=== PATIENT | male | born 1935 | race Caucasian/White ===

== ENCOUNTER 2019-11-08 12:06 | Emergency (ER) | payer MEDICARE, OTHER ==
[2019-11-08] MEDS ORDERED: Bacitracin Oint 1 GM U/D Packet TOP ONE (12:54)
--- NOTE | 2019-11-08 12:58 | EDM.PDOC ---
ED HPI GENERAL MEDICAL PROBLEM - General Chief Complaint: Upper Extremity Injury/Pain Stated Complaint: LEFT HAND INJURY Time Seen by Provider: 11/08/19 12:47 Source of Information: Reports: Patient, RN Notes Reviewed History Limitations: Reports: No Limitations - History of Present Illness INITIAL COMMENTS - FREE TEXT/NARRATIVE: 83-year-old gentleman presents emergency department today following trauma to his left hand he was out cutting wood a tree branch came down and hit the dorsal surface of his left hand unfortunately he had an avulsion of the skin between digits #1 1 and 2, he does not have the avulsed piece of skin with him - Related Data Allergies Allergy/AdvReac Type Severity Reaction Status Date / Time No Known Allergies Allergy Verified 11/08/19 12:30 Home Meds: Home Meds Albuterol Sulfate [Albuterol Sulfate Hfa] 2 puff IH ASDIRECTED 11/08/19 [History ] Aspirin [Halfprin] 81 mg PO DAILY 11/08/19 [History] Past Medical History HEENT History: Reports: Cataract, Impaired Vision Cardiovascular History: Reports: CAD, Prior Cardiac Arrest, Stents Respiratory History: Reports: COPD, Sleep Apnea Other Respiratory History: cpap Endocrine/Metabolic History: Reports: Diabetes, Type II, Obesity/BMI 30+ - Past Surgical History Head Surgeries/Procedures: Reports: None HEENT Surgical History: Reports: None Cardiovascular Surgical History: Reports: Coronary Artery Stent Respiratory Surgical History: Reports: None GI Surgical History: Reports: Appendectomy Endocrine Surgical History: Reports: None Musculoskeletal Surgical History: Reports: Knee Replacement Dermatological Surgical History: Reports: None Social & Family History - Tobacco Use Smoking Status *Q: Former Smoker Used Tobacco, but Quit: Yes Month/Year Tobacco Last Used: 1999 Second Hand Smoke Exposure: No - Caffeine Use Caffeine Use: Reports: Coffee - Recreational Drug Use Recreational Drug Use: No Review of Systems - Review of Systems Review Of Systems: See Below Skin: Reports: Wound Neurological: Reports: No Symptoms ED EXAM, GENERAL - Physical Exam Exam: See Below Free Text/Narrative:: Examination of the left hand he has full range of motion of all digits radial pulses +2 sensation is intact he does have bruising and ecchymosis over the dorsal surface he is tender to the touch over the second metacarpal he has avulsed the skin between digits 1 and 2 it is a superficial avulsion of the thin skin. Bleeding is controlled Course - Vital Signs Last Recorded V/S: Last Vital Signs Temp 97.7 F 11/08/19 12:39 Pulse 79 11/08/19 12:39 Resp 16 11/08/19 12:39 BP 158/92 H 11/08/19 12:39 Pulse Ox 94 L 11/08/19 12:39 - Orders/Labs/Meds Orders: Active Orders 24 hr Category Date Time Status Hand 2V Lt [CR] Stat Exams 11/08/19 12:53 Taken Meds: Medications Discontinued Medications Generic Name Dose Route Start Last Admin Trade Name Reji PRN Reason Stop Dose Admin Bacitracin 1 dose 11/08/19 12:54 11/08/19 13:30 Bacitracin Oint 1 Gm TOP 11/08/19 12:55 1 dose ONETIME ONE Administration Departure - Departure Time of Disposition: 13:46 Disposition: Home, Self-Care 01 Condition: Fair Clinical Impression: Avulsion of skin of left hand Qualifiers: Encounter type: initial encounter Qualified Code(s): S61.402A - Unspecified open wound of left hand, initial encounter - Discharge Information Instructions: Skin Tear, [id number] Referrals: PCP,None [Primary Care Provider] - Forms: ED Department Discharge Additional Instructions: Recommend changing your dressing every 3 to 5 days with bacitracin and clean with soap and water apply clean dressing follow-up primary care 3 to 5 days if not better call return to the emergency department worsening of symptoms Sepsis Event Note - Evaluation Sepsis Screening Result: No Definite Risk - Focused Exam Vital Signs: Vital Signs Temp Pulse Resp BP Pulse Ox 11/08/19 12:39 97.7 F 79 16 158/92 H 94 L 11/08/19 12:27 97.7 F 79 16 158/92 H 94 L Date Exam was Performed: 11/08/19 Time Exam was Performed: 13:45 - My Orders Last 24 Hours: My Active Orders 11/08/19 12:53 Hand 2V Lt [CR] Stat - Assessment/Plan Last 24 Hours: My Active Orders 11/08/19 12:53 Hand 2V Lt [CR] Stat Plan: Assessment Acuity = acute Site and laterality = avulsion of skin on left hand with contusion Etiology = secondary to trauma Manifestations = none Location of injury = Home Lab values = x-ray hand I did review films myself I cannot appreciate any acute process, the official read from radiology is pending Plan Did discuss wound care with him he will do this at home follow-up with his primary care 3 to 5 days if not better This note was dictated using [employer] voice recognition software please call with any questions on syntax or grammar.
--- NOTE | 2019-11-08 13:46 | CR ---
Hand 2V Lt CLINICAL HISTORY: Trauma FINDINGS: There is deformity of the scaphoid likely related to fracture. There is significant the degenerative change in the radiocarpal joint with loss of the joint space is also deformity of the lunate Bones appear osteopenic. 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 Deformity of the scaphoid may be from old injury or degenerative change and some rotation.
== END 2019-11-08 13:52 | disposition home or self-care (01) ==
LOC: JP.ED 12:06
DX: S61.402A Unspecified open wound of left hand, initial encounter (principal); I25.10 Atherosclerotic heart disease of native coronary artery without angina pectoris; J44.9 Chronic obstructive pulmonary disease, unspecified; E11.9 Type 2 diabetes mellitus without complications; E66.9 Obesity, unspecified; Z87.891 Personal history of nicotine dependence; Z79.82 Long term (current) use of aspirin; Z68.32 Body mass index [BMI] 32.0-32.9, adult; W22.8XXA Striking against or struck by other objects, initial encounter
CPT/HCPCS: 73120-26-LT; 73120-LT; 99283; 99283-25

== ENCOUNTER 2020-11-11 16:44 | Emergency (ER) | payer MEDICARE, OTHER ==
--- NOTE | 2020-11-11 18:08 | EDM.PDOC ---
ED HPI GENERAL MEDICAL PROBLEM - General Chief Complaint: General Stated Complaint: ABD PAIN Time Seen by Provider: 11/11/20 17:10 Source of Information: Reports: Patient, Family, Provider History Limitations: Reports: No Limitations - History of Present Illness INITIAL COMMENTS - FREE TEXT/NARRATIVE: 84-year-old male has had anterior chest and left anterior chest pain after a procedure with a chiropractor 1 week ago. The pain was fairly localized to the left of the sternum, but after working with his skid steer and pulling on a cable the pain is now radiating further to the left to the anterior chest wall. There is no bruising, deformity but it is very painful to breathe or lie down. He does not complain of shortness of breath. He has not taken anything for pain. Onset: Sudden (Pain started fairly suddenly 1 week ago during a chiropractic procedure on a table) Location: Reports: Chest (Anterior and left chest) Quality: Reports: Sharp Improves with: Reports: Rest Worsens with: Reports: Breathing, Other (Coughing is very painful), Movement Left Lower Chest Pain Score (Numeric/FACES): 5 - Related Data Allergies Allergy/AdvReac Type Severity Reaction Status Date / Time No Known Allergies Allergy Verified 11/08/19 12:30 Home Meds: Home Meds Albuterol Sulfate [Albuterol Sulfate Hfa] 2 puff IH ASDIRECTED 11/08/19 [History] Aspirin [Halfprin] 81 mg PO DAILY 11/08/19 [History] Past Medical History HEENT History: Reports: Cataract, Impaired Vision Cardiovascular History: Reports: CAD, Prior Cardiac Arrest, Stents Respiratory History: Reports: COPD, Sleep Apnea Other Respiratory History: cpap Gastrointestinal History: Reports: None Musculoskeletal History: Reports: None Endocrine/Metabolic History: Reports: Diabetes, Type II, Obesity/BMI 30+ - Infectious Disease History Infectious Disease History: Reports: Chicken Pox, Measles, Mumps - Past Surgical History Head Surgeries/Procedures: Reports: None HEENT Surgical History: Reports: None Cardiovascular Surgical History: Reports: Coronary Artery Stent Respiratory Surgical History: Reports: None GI Surgical History: Reports: Appendectomy Endocrine Surgical History: Reports: None Musculoskeletal Surgical History: Reports: Knee Replacement Dermatological Surgical History: Reports: None Social & Family History - Tobacco Use Years of Tobacco use: 70 Packs/Tins Daily: 0.5 - Caffeine Use Caffeine Use: Reports: Coffee - Recreational Drug Use Recreational Drug Use: No ED ROS GENERAL - Review of Systems Review Of Systems: See Below Constitutional: Denies: Fever, Chills Respiratory: Reports: Pleuritic Chest Pain. Denies: Shortness of Breath Cardiovascular: Reports: Chest Pain. Denies: Palpitations GI/Abdominal: Denies: Abdominal Pain, Nausea, Vomiting Musculoskeletal: Denies: Neck Pain Skin: Denies: Bruising, Rash (No rash over painful area) Neurological: Denies: Paresthesia Psychiatric: Reports: No Symptoms ED EXAM, GENERAL - Physical Exam Exam: See Below Exam Limited By: No Limitations General Appearance: Alert, No Apparent Distress Head: Atraumatic Neck: Supple, Non-Tender Respiratory/Chest: Lungs Clear, Other (Chest is very tender to palpation just to the left of the sternum radiating along the left 10th or 11th ribs, no crepitus or deformities felt) Cardiovascular: Regular Rate, Rhythm Extremities: Normal Inspection, No Pedal Edema Neurological: Alert, Oriented Skin Exam: Other (Some superficial abrasions on his right forearm from scratching) Course - Vital Signs Last Recorded V/S: Last Vital Signs Temp 97.5 F 11/11/20 16:57 Pulse 71 11/11/20 16:57 Resp 18 11/11/20 16:57 BP 185/83 H 11/11/20 16:57 Pulse Ox 99 11/11/20 16:57 - Orders/Labs/Meds Meds: Medications Discontinued Medications Generic Name Dose Route Start Last Admin Trade Name Weroq PRN Reason Stop Dose Admin Naproxen 500 mg 11/11/20 18:09 11/11/20 18:21 Naproxen 250 Mg Tab PO 11/11/20 18:10 500 mg ONETIME ONE Administration - Re-Assessments/Exams Free Text/Narrative Re-Assessment/Exam: 11/11/20 18:14 CT of the chest without contrast was ordered and the patient was given 500 mg of oral naproxen. 11/11/20 18:26 Impression: COPD/emphysema. Bilateral lower lobe scarring. No sternal fracture. No retrosternal hematoma. Above findings were discussed with the patient, he was encouraged to continue with anti-inflammatories and increase activity as tolerated. Recheck in 4 to 5 days if not improving satisfactorily. Departure - Departure Time of Disposition: 18:47 Disposition: Home, Self-Care 01 Clinical Impression: Chest wall pain, Acute costochondritis - Discharge Information Instructions: Costochondritis, [id number] Referrals: PCP,None [Primary Care Provider] - Forms: ED Department Discharge Care Plan Goals: Take a regular dose of ibuprofen or naproxen over the next 5 days, increase activity as tolerated and recheck if not improving satisfactorily. Return sooner if worsening despite treatment such as difficulty breathing. Sepsis Event Note (ED) - Evaluation Sepsis Screening Result: No Definite Risk
[2020-11-11] MEDS ORDERED: Naproxen 250 MG Tab PO ONE (18:09)
--- NOTE | 2020-11-11 18:25 | CRLCT ---
Indication: INJURY TO LEFT ANTERIOR CHEST WALL, STERNUM Technique: Noncontrast CT chest Please note that all CT scans at this facility use dose modulation, iterative reconstruction, and/or weight-based dosing when appropriate to reduce radiation dose to as low as reasonably achievable. Comparison: None Findings: COPD/emphysema. Bilateral lower lobe scarring. Mild scarring also within the inferior right middle lobe and inferior lingula. No pneumothorax. No pleural effusion. 4 millimeter nodule within the right middle lobe, series 3, slice 57. Ill-defined nodule measuring 3 millimeters within the left upper lobe, series 3, image 31. Possible additional nodular density adjacent to the right hemidiaphragm, series 3, image 66-65, measuring 7 millimeters. The ribs are intact. Intact sternum. Normal manubrium in clavicle. Scapula normal. In the upper abdomen, there is a left renal cyst arising from the posterior left kidney. Normal liver and spleen. Pancreas, normal as visualized, with the exception of a small calcification adjacent to the uncinate process. Normal adrenal glands and gallbladder. Ill-defined mesenteric stranding centrally. No adenopathy. Heterogeneous thyroid. Impression: COPD/emphysema. Bilateral lower lobe scarring. No sternal fracture. No retrosternal hematoma. 4 millimeter pulmonary nodule right middle lobe and 3 millimeter pulmonary nodule left upper lobe. Optional follow-up CT in 1 year could be performed. Mesenteric panniculitis partially visualized. Exophytic left renal cortical cyst. Dictated by William Miles MD @ 11/11/2020 6:23:42 PM Please note that all CT scans at this facility use dose modulation, iterative reconstruction, and/or weight-based dosing when appropriate to reduce radiation dose to as low as reasonably achievable. Dictated by: William Miles MD @ 11/11/2020 18:23:55 (Electronically Signed)
== END 2020-11-11 18:40 | disposition home or self-care (01) ==
LOC: JP.ED 16:44
DX: M94.0 Chondrocostal junction syndrome [Tietze] (principal); S50.811A Abrasion of right forearm, initial encounter; I25.10 Atherosclerotic heart disease of native coronary artery without angina pectoris; J44.9 Chronic obstructive pulmonary disease, unspecified; E11.9 Type 2 diabetes mellitus without complications; E66.9 Obesity, unspecified; Z68.31 Body mass index [BMI] 31.0-31.9, adult; Z72.0 Tobacco use; Z79.82 Long term (current) use of aspirin; Z95.5 Presence of coronary angioplasty implant and graft; X58.XXXA Exposure to other specified factors, initial encounter
CPT/HCPCS: 71250; 99283; A9270

== ENCOUNTER 2021-10-11 11:15 | Emergency (ER) | payer OTHER, MEDICARE | END 2021-10-11 12:15 | disposition home or self-care (01) | LOC: JP.ED 11:15 | DX: M54.6 Pain in thoracic spine (principal); J44.9 Chronic obstructive pulmonary disease, unspecified; I25.10 Atherosclerotic heart disease of native coronary artery without angina pectoris; I10 Essential (primary) hypertension; E11.9 Type 2 diabetes mellitus without complications; E66.9 Obesity, unspecified; Z68.32 Body mass index [BMI] 32.0-32.9, adult; Z79.82 Long term (current) use of aspirin; Z79.84 Long term (current) use of oral hypoglycemic drugs | CPT/HCPCS: 99282; 99283 ==

== ENCOUNTER 2023-10-27 11:11 | Emergency (ER) | payer OTHER, MEDICARE | END 2023-10-27 13:30 | disposition home or self-care (01) | LOC: JP.ED 11:11 | DX: L03.012 Cellulitis of left finger (principal); J44.9 Chronic obstructive pulmonary disease, unspecified; I10 Essential (primary) hypertension; I25.2 Old myocardial infarction; E11.9 Type 2 diabetes mellitus without complications; E66.9 Obesity, unspecified; Z79.899 Other long term (current) drug therapy; Z88.1 Allergy status to other antibiotic agents; Z79.51 Long term (current) use of inhaled steroids; Z79.82 Long term (current) use of aspirin; Z79.84 Long term (current) use of oral hypoglycemic drugs; Z95.5 Presence of coronary angioplasty implant and graft; Z68.31 Body mass index [BMI] 31.0-31.9, adult | CPT/HCPCS: 99283 ==

== ENCOUNTER 2024-04-20 14:55 | Emergency (ER) | payer OTHER, MEDICARE ==
[2024-04-20] MEDS ORDERED: Proparacaine 0.5% Ophth Soln 15 ML Bottle EYERT ONE (15:16)
[2024-04-20 15:30] VITALS: BP 149/74; PULSE 65
== END 2024-04-20 15:42 | disposition home or self-care (01) ==
LOC: JP.ED 14:55
DX: T15.02XA Foreign body in cornea, left eye, initial encounter (principal); I10 Essential (primary) hypertension; J44.9 Chronic obstructive pulmonary disease, unspecified; E11.9 Type 2 diabetes mellitus without complications; E66.9 Obesity, unspecified; Z68.29 Body mass index [BMI] 29.0-29.9, adult; Z90.49 Acquired absence of other specified parts of digestive tract; Z79.899 Other long term (current) drug therapy; Z79.84 Long term (current) use of oral hypoglycemic drugs; Z79.82 Long term (current) use of aspirin; Z88.1 Allergy status to other antibiotic agents; W45.8XXA Other foreign body or object entering through skin, initial encounter
CPT/HCPCS: 99283; A9270-GY